=== PATIENT | female | born 1935 | race Caucasian/White ===

== ENCOUNTER 2017-01-23 08:54 | Emergency (ER) | payer MEDICARE, OTHER ==
--- NOTE | ~2017-01-23 | CT71 ---
[facility] A Service of [facility] RADIOLOGY TEXT RESULTS PATIENT: DACIA VALLADARES LOCATION: SED : 35 UNIT #: [id number] AGE: [address]: Adrian Mari MD SEX: F ORDER DR: [id number] [place] [id number] E MR#: [id number] Acc #: [id number] NAME: DACIA VALLADARES : 1935 SEX: F STUDY DATE/TIME: 01/23/2017 9:27 UNIT: SED ROOM: STUDY DESCRIPTION: CT Head Wo Contrast Attending Physician: Adrian Mari M.D. Ordering Physician: Adrian Mari M.D. Primary Care Physician: Diana Mak A.P.R.N. MEDICAL IMAGING REPORT This report is preliminary unless electronic signature is present. EXAM CT head, 01/23/2017 HISTORY Fall this morning. Hit right ear and head. Laceration between right ear. Pain, dizzy. TECHNIQUE This CT exam was performed with one or more of the following radiation dose reduction techniques: automatic exposure control, adjustment of mA and/or kV according to patient size, and iterative reconstruction. FINDINGS CT head performed skull base through vertex without intravenous contrast. Comparison 08/22/2015. Multiple images degraded by streak/motion artifact. Brainstem is unremarkable. Cerebellum and cerebral hemispheres show normal valladares matter-white matter differentiation. No hemorrhage. No evidence of acute cortical ischemia. Midline structures nondisplaced. No acute basal ganglia abnormality. Ventricles, cisterns and sulci show stable mild generalized enlargement consistent with mild generalized atrophy. No intra or extraaxial mass effect. No abnormal intracranial fluid collection. Cavernous carotid and distal vertebral arterial calcifications. The visualized intraorbital soft tissues are unremarkable. The visualized paranasal sinuses and mastoid air cells are clear. Subcutaneous air in the right retroauricular region likely reflecting the patient's stated laceration. Laceration plane could be as long as 1.7 cm in length. Correlate with exam. No radiodense foreign body is seen. No fracture. IMPRESSION 1. No acute abnormality in the brain. Some images degraded by STS. [facility] A Service of [facility] RADIOLOGY TEXT RESULTS PATIENT: DACIA VALLADARES LOCATION: SED : 35 UNIT #: [id number] AGE: [address]: Adrian Mari MD SEX: F ORDER DR: streak/motion artifact. Vascular calcifications. Mild generalized atrophy. 2. No fracture. 3. Subcutaneous air right retroauricular region likely reflecting the patient's stated laceration. Laceration plane may be up to about 1.7 cm in length behind the ear. It probably extends in superior to inferior extent approximately 2.0-3.0 cm. Please correlate with exam. No associated subcutaneous radiodense foreign body. Dictated by... Marcial Jim M.D. THIS IS AN ELECTRONICALLY VERIFIED REPORT Marcial Jim M.D. at 01/23/2017 3:49 PM ADAM/jania TD: 01/23/2017 10:40 JOB #: [id number] MEDICAL IMAGING REPORT Page 1 of 1
[~2017-01-23 08:54] MED LIST: ACTONEL PO; AMITRIPTYLINE H50 MG PO; ANEXSIA 5/325 M1 TA1 PO; ASPIRIN PO; ASPIRIN81 M2 PO; CARVEDILOL6.25 MG PO; COREG3.125 MG PO; HCTZ PO; KEFLEX500 MG PO; LISINOPRIL PO; LISINOPRIL2.5 MG PO; LORTAB 5/500 TA1 TA1 PO; MEDROL PO; MOBIC PO; NITROGLYCERIN0.4 MG SL; PLAQUENIL200 MG; PLAQUENIL200 MG PO; PREDNISOLONE SO10 ML OP; ROBITUSSIN A-C10 ML PO; SULF-PRED 10-0.10 ML OP; SULF-PRED 10-0.25 ML OS; TAMIFLU75 M1 PO; VALTREX; VALTREX PO; VALTREX500 MG PO; VIACTIV PO; VIACTIV SOFT C1 EACH PO; ZYRTEC PO; ZYRTEC10 M1 PO; ZYRTEC10 M2 PO
[2017-01-23] MEDS ORDERED: PLAQUENIL200 MG (09:02)
[2017-01-23] MEDS ORDERED: ZYRTEC10 M1 PO (09:03)
[2017-01-23] MEDS ORDERED: ASPIRIN81 MG PO (09:03)
[2017-01-23] MEDS ORDERED: COREG6.25 MG PO (09:05)
[2017-01-23] MEDS ORDERED: VALACYCLOVIR500 MG PO (09:06)
[2017-01-23] MEDS ORDERED: LISINOPRIL PO (09:06)
[2017-01-23] MEDS ORDERED: AMITRIPTYLINE H50 MG PO (09:07)
== END 2017-01-23 10:40 | disposition home or self-care (01) ==
LOC: SED 08:54
DX: S09.90XA Unspecified injury of head, initial encounter (principal); S01.311A Laceration without foreign body of right ear, initial encounter; Z23 Encounter for immunization; M79.7 Fibromyalgia; G56.00 Carpal tunnel syndrome, unspecified upper limb; Z98.890 Other specified postprocedural states; W01.0XXA Fall on same level from slipping, tripping and stumbling without subsequent striking against object, initial encounter; Y92.9 Unspecified place or not applicable
CPT/HCPCS: 12001; 12011; 70450; 90471; 90715; 99284